=== PATIENT | female | born 1995 | race African-American/Black ===

== ENCOUNTER 2023-09-30 12:07 | Emergency (ER) | payer MEDICAID ==
[~2023-09-30] VITALS: Ht 170.2 cm; Wt 113.4 kg
[2023-09-30 12:26] VITALS: BP 136/69; TEMP 98.5
[2023-09-30] MEDS ORDERED: NEOM10DR11 EACH EAR (12:27)
[2023-09-30] MEDS ORDERED: AMOX-427 PO (12:27)
[2023-09-30 12:35] VITALS: O2SAT 99
== END 2023-09-30 12:35 | disposition home or self-care (01) ==
LOC: ER 12:14
DX: H60.93 Unspecified otitis externa, bilateral (principal); J45.909 Unspecified asthma, uncomplicated